=== PATIENT | male | born 1970 | race Caucasian/White ===

== ENCOUNTER → 2016-10-02 | Outpatient (CLI) | payer MEDICAID | LOC: FIMAGING 10:07 | PROVIDERS: ATTEND Orthopaedic Surgery | DX: M16.11 Unilateral primary osteoarthritis, right hip (principal); M51.36 Other intervertebral disc degeneration, lumbar region; M51.26 Other intervertebral disc displacement, lumbar region; M48.06 Spinal stenosis, lumbar region; K57.30 Diverticulosis of large intestine without perforation or abscess without bleeding ==

== ENCOUNTER 2016-10-23 08:15 | Inpatient (IN) | payer MEDICAID ==
[~2016-10-23 08:15] MED LIST: ACETAMINOPHEN 325 MG TAB PO ONE; CHLORHEXIDINE GLUC HIBICLENS 118 ML BTL TP ONE; DEXAMETHASONE 4 MG/ML VIAL IVP ONE; FAMOTIDINE 20 MG TAB PO ONE; ROPI/epiNEPH/KETOROLAC JOINT COCKTAIL IU ONE; SKIN ADHESIVE (DERMABOND) 1 EACH TP ONE; TRANEXAMIC ACID 3,000 MG in NS 50 ML IRR ONE; TRANEXAMIC ACID 3,000 MG/50 ML BAG IRR ONE
[2016-10-23] MEDS ORDERED: MIDAZOLAM 2 MG/2 ML VIAL ONE (14:16)
[2016-10-23] MEDS ORDERED: FAMOTIDINE 20 MG TAB ONE (14:19)
[2016-10-23] MEDS ORDERED: DEXAMETHASONE 4 MG/ML VIAL ONE ×2 (14:19→15:49)
[2016-10-23] MEDS ORDERED: ACETAMINOPHEN 325 MG TAB ONE (14:19)
[2016-10-23] MEDS ORDERED: fentaNYL 100 MCG/2 ML INJ ONE (14:20)
[2016-10-23] MEDS ORDERED: CEFAZOLIN 2 GM/DEXTROSE/100 ML BAG IV ONE (14:20)
[2016-10-23] MEDS ORDERED: PROPOFOL/EMULSION 500 MG/50 ML BOTTLE IV ONE (14:21)
[2016-10-23] MEDS ORDERED: ONDANSETRON 4 MG/2 ML VIAL ONE (15:49)
[2016-10-23] MEDS ORDERED: diphenhydrAMINE 25 MG CAP PO PRN (16:05)
[2016-10-23] MEDS ORDERED: PHARMACY PAIN CONSULT 1 EA MISC PRN (16:05)
[2016-10-23] MEDS ORDERED: LACTULOSE 20 GM/30 ML UDCUP PO PRN (16:05)
[2016-10-23] MEDS ORDERED: ONDANSETRON DISINTEGRATING 4 MG TAB PO PRN (16:05)
[2016-10-23] MEDS ORDERED: DIPHENOXYLATE/ATROPINE LOMOTIL 1 TAB PO PRN (16:05)
[2016-10-23] MEDS ORDERED: ONDANSETRON 4 MG/2 ML VIAL IVP PRN (16:05)
[2016-10-23] MEDS ORDERED: POLYETHYLENE GLYCOL 3350 17 GM PKT PO PRN (16:05)
[2016-10-23] MEDS ORDERED: BISACODYL 10 MG SUPP PR PRN (16:05)
[2016-10-23] MEDS ORDERED: MAGNESIUM HYDROXIDE 30 ML UDCUP PO PRN (16:05)
[2016-10-23] MEDS ORDERED: PROMETHAZINE HCL 25 MG SUPPR PR PRN (16:05)
[2016-10-23] MEDS ORDERED: TEMAZEPAM 15 MG CAP PO PRN (16:05)
[2016-10-23] MEDS ORDERED: METOCLOPRAMIDE 10 MG/2 ML VIAL IVP PRN (16:05)
--- NOTE | 2016-10-23 16:05 | POSTOPPROG ---
Post Op Note Date of Operation: 10/23/16 Surgeon: Ya Sprague Certified Professional Midwife: jazmin sprague Anesthesiologist: dr. birch Anesthesia: Spinal Pre-op Diagnosis: right hip OA Post-op Diagnosis: same Indication: right hip pain due to OA that failed conservative measures Procedure: R LARS ant approach Findings: severe hip OA Inf/Abcess present in the surg proc area at time of surgery?: No EBL: 100-500
[2016-10-23] MEDS ORDERED: LR 1,000 ML IV SCH (16:30)
[2016-10-23] MEDS: ACETAMINOPHEN 325 MG TAB PO SCH ×2 (17:34→23:56)
[2016-10-23] MEDS: oxyCODONE IR 5 MG TAB PO PRN ×3 (17:34→23:56)
[2016-10-23] MEDS: CYCLOBENZAPRINE 10 MG TAB PO PRN (17:35)
--- NOTE | 2016-10-23 20:17 | GOP ---
[f rep st] OPERATIVE REPORT DATE OF OPERATION: 10/23/2016 SURGEON: Nidhi Huerta MD ANESTHESIA: Spinal. PREOPERATIVE DIAGNOSIS: Right hip osteoarthritis. POSTOPERATIVE DIAGNOSIS: Right hip osteoarthritis. PROCEDURE PERFORMED: FINDINGS: ESTIMATED BLOOD LOSS: 200 cc. INDICATIONS: The patient has progressively worsening arthritis of the hip which has failed medical management. The patient understands the treatment options including continued non-operative care an d has selected surgical intervention. The patient has decided to undergo total hip arthroplasty via the direct anterior approach, understanding the risks of the procedure including, but not limited t o, neurovascular injury, infection, persistent pain, component wear and loosening, deep venous throm bosis, pulmonary embolism, limb length inequality, hip instability (including dislocation), and intr a-operative fractures. DESCRIPTION OF PROCEDURE: After proper identification of the patient including verification and mar angie the surgical site, the patient was brought to the operating room and placed in the supine posit ion. All bony prominences were well padded. Anesthesia was induced without complication and intrav enous prophylactic antibiotics were administered prior to skin incision. The operative leg was placed in the Trumpf Arch table extension and the well leg in a [place] leg h older. The patient was prepped and draped in the usual sterile fashion. The C-arm was draped for i ntra-operative fluoroscopy to check acetabular position, femoral component position including leg le ngth and femoral offset. Attention was then drawn to surgical exposure of the hip. An incision was made with a #10 [place] er blade starting 3 cm lateral and 3 cm distal to the anterior superior iliac spine measuring 8-10 c m and coursing distally toward the greater trochanter. The skin and subcutaneous tissues were divid ed sharply down to the fascia kasia. The fascia kasia was incised in line with the skin incision expo sing the underlying tensor fascia kasia muscle. The muscle was bluntly elevated from the fascia and the first extracapsular Cobra retractor was placed laterally at the junction of the superior femoral neck and greater trochanter. The lateral femoral circumflex vessels were identified, cauterized, a nd divided with the Aquamantys bipolar cautery. The deep investing fascia of the TFL was divided to allow proper mobilization of the muscle preventing damage during the retraction. The reflected hea d of the rectus femoris muscle was elevated off the anterior hip capsule and a medial Cobra retracto r was placed just proximal to the lesser trochanter. The anterior capsulotomy was made sharply from the superolateral acetabulum to the saddle junction o f the superior femoral neck and greater trochanter, then coursing inferomedial towards the lesser tr ochanter. The retractors were then placed in the intracapsular position for femoral neck osteotomy. Corresponding to pre-operative templating, the osteotomy was made with the oscillating saw careful ly protecting the greater trochanter and soft tissues. The femoral head was removed from the acetab ulum with a corkscrew and confirmed to be severely arthritic with exposed bone, deformity and osteop hytes. Similar findings were confirmed in the acetabulum. The Arch table extension was then placed in 40 degrees external rotation. Attention was then drawn to the acetabular preparation. After placement of the anterior and posteri or Cobra retractors outside the labrum and intracapsular, the circumferential labrum was removed sha rply. The foveal contents were then removed and hemostasis obtained with cautery. The first reamer selected was sized using the removed femoral head. Reaming began with medializatio n and then commenced in 2 mm increments at 45 degrees of abduction and 15 degrees of anteversion usi ng fluoroscopic navigation. Reaming ceased 1 mm less than the definitive acetabular component and c orresponded to the pre-operative templating. The final acetabular component was inserted using fluo roscopy to achieve proper orientation yielding excellent purchase and stability in the acetabulum. The final acetabular liner was then placed and its seating confirmed. Attention was then turned to the femur. The Arch table extension was placed in extension and adduct ion, delivering the osteotomized femoral neck into the wound. A 2-pronged femoral elevator was plac ed at the calcar and another at the tip of the greater trochanter. The posterolateral capsule was r eleased with cautery allowing mobilization of the femur lateral and anterior for preparation. The e xternal rotators were visualized and preserved. A curette and rongeur were used to open the startin g point for broaching. Serial broaching started with the #0 broach and ended with the broach that e xhibited excellent fit in the proximal femur. A change in pitch during mallet strikes was accompani ed by the inability to advance the broach any further. The trial reduction was performed and fluoro scopic navigation was utilized to check limb length. Adjustments were made to equalize limb length accordingly. After the final trials were accepted they were removed and the wound was copiously lavaged. The fem oral component was seated to the same depth as the final broach and the femoral head was impacted on to the clean trunnion. The hip was then reduced for the final time and once more fluoroscopy was us ed to check that limb length equality was achieved. The wound was irrigated and closed in layers, the fascia kasia with 2-0 Quill, the subcutaneous tissu e with 2-0 Quill, and the skin with Dermabond. Sterile dressings were applied. Final sharps and sp onge counts were accurate. The patient was then transferred to a hospital bed and brought to the re covery room in stable condition. PROCEDURE: Right total hip arthroplasty with x-ray. SURGEON: Nidhi Huerta M.D. STORE PRODUCT DEMONSTRATOR SURGEON: Roxanna Huerta, BRONWYN. IMPLANTS: Accolade II size 5 x 127, acetabular component a Tritanium 58 mm, the liner is a Trident X3 36 mm. The head is a Biolox Delta 36 mm plus 0. /[id number]/MODL
[2016-10-23] MEDS: SENNOSIDES/DOCUSATE SODIUM TAB PO SCH (20:36)
[2016-10-23] MEDS: ASPIRIN 325 MG TAB PO SCH (20:36)
[2016-10-23] MEDS: FAMOTIDINE 20 MG TAB PO SCH (20:37)
[2016-10-23] MEDS: ceFAZolin 2 GM/DEXTROSE 100 ML IV SCH (21:41)
[2016-10-23 23:48] VITALS: RESP 16
[2016-10-24 03:30] VITALS: TEMP 98.1
[2016-10-24] MEDS: oxyCODONE IR 5 MG TAB PO PRN ×4 (03:35→11:04)
[2016-10-24] MEDS: CYCLOBENZAPRINE 10 MG TAB PO PRN (03:35)
[2016-10-24] MEDS: ceFAZolin 2 GM/DEXTROSE 100 ML IV SCH (05:03)
[2016-10-24] MEDS: ACETAMINOPHEN 325 MG TAB PO SCH (05:03)
[2016-10-24 05:13] LABS: HEMATOCRIT 44.3 % (40.0-51.0); HEMOGLOBIN 15.4 g/dL (13.7-17.5)
[2016-10-24] MEDS: FAMOTIDINE 20 MG TAB PO SCH (07:18)
[2016-10-24] MEDS: SENNOSIDES/DOCUSATE SODIUM TAB PO SCH (07:18)
[2016-10-24] MEDS: ASPIRIN 325 MG TAB PO SCH (07:21)
[2016-10-24 07:23] VITALS: BP 111/80
[2016-10-24 07:25] VITALS: PULSE 110; O2SAT 93
[2016-10-24] MEDS ORDERED: IRBESARTAN 150 MG TAB PO SCH (09:00)
--- NOTE | 2016-10-24 10:00 | SOAPPROG ---
SOAP Progress Note Assessment/Plan: Assessment: Ramsey is doing well today POD 1 s/p R LARS 1. pain management: well controlled on oral pain meds 2. VTE ppx: recommend ASA daily for 3 weeks. continue SHASHA hose and SCD 3.anemia: level expected initially postop, asymptomatic 4. d/c planning : d/c to home pending release from PT Plan: 10/24/16 09:59 Subjective: Ramsey is doing well today, denies SOB, chest pain and n/V. Objective: Vital Signs Temp Pulse Resp BP Pulse Ox 36.7 C 110 H 16 111/80 93 10/24/16 07:23 10/24/16 07:23 10/24/16 07:23 10/24/16 07:23 10/24/16 07:23 Laboratory Results 10/24/16 04:54 10/23/16 10/24/16 10/25/16 05:59 05:59 06:59 Intake Total 3375 Output Total 1475 Balance 1900 RLE: incision dressing is clean and dry, NVI, +pf/df ICD10 Worksheet Patient Problems: Problems Problem Status Onset Primary localized osteoarthritis of right hip Acute
== END 2016-10-24 11:10 | disposition home or self-care (01) | DRG 470 ==
LOC: F3N 11:42
PROVIDERS: ADMIT Orthopaedic Surgery; ATTEND Orthopaedic Surgery
PROC: 0SR904Z Replacement of Right Hip Joint with Ceramic on Polyethylene Synthetic Substitute, Open Approach (ICD-10-PCS; principal; 2016-10-23 14:15)
DX: M16.11 Unilateral primary osteoarthritis, right hip (principal); I10 Essential (primary) hypertension
CPT/HCPCS: 97161-GP; 97165-GO; J0171; J0690; J1100; J1885; J2250; J2405; J2704; J2795; J3010